=== PATIENT | male | born 2000 | race Caucasian/White ===

== ENCOUNTER 2019-07-27 22:10 | Emergency (ER) | payer OTHER ==
[~2019-07-27] VITALS: Ht 180.3 cm; Wt 59.0 kg
[~2019-07-27 22:10] MED LIST: ALBUTEROL SULF8.5 GM INH; HYDROXYZINE HCL25 MG PO; [UNRECOGNIZED DRUG - REMARK]
== END 2019-07-27 23:05 | disposition home or self-care (01) ==
LOC: ED 22:10
DX: S61.213A Laceration without foreign body of left middle finger without damage to nail, initial encounter (principal); W26.0XXA Contact with knife, initial encounter; Z88.5 Allergy status to narcotic agent; Z88.8 Allergy status to other drugs, medicaments and biological substances
CPT/HCPCS: 90471; 90715; 99282-25

== ENCOUNTER 2023-09-27 14:23 | Emergency (ER) | payer OTHER ==
[~2023-09-27] VITALS: Ht 180.3 cm; Wt 64.3 kg
[2023-09-27 15:50] VITALS: BP 130/66
== END 2023-09-27 15:50 | disposition home or self-care (01) ==
LOC: ED 14:23
DX: S06.0X0A Concussion without loss of consciousness, initial encounter (principal); W10.9XXA Fall (on) (from) unspecified stairs and steps, initial encounter; Z88.5 Allergy status to narcotic agent; Z88.0 Allergy status to penicillin; Z88.8 Allergy status to other drugs, medicaments and biological substances
CPT/HCPCS: 70450